=== PATIENT | male | born 1960 | race Caucasian/White ===

== ENCOUNTER 2019-11-08 07:28 | Day surgery (SDC) | payer BC ==
--- NOTE | 2019-11-06 14:59 | HP ---
DATE OF SURGERY: 11/08/2019 ANTICIPATED PROCEDURE: Short C-scope. HISTORY OF PRESENT ILLNESS: A 59 year-old had high grade dysplasia, atypical polyp cancer. He presents for colonoscopy with two Fleet's enemas. Very large atypical polyp resected on 08/30/2019 requiring immediate follow up. PAST MEDICAL HISTORY: ALLERGIES: PENICILLIN. MEDICATIONS: Lisinopril, atorvastatin, baby aspirin. PAST SURGICAL HISTORY: None. SOCIAL HISTORY: Negative. FAMILY HISTORY: Negative. REVIEW OF SYSTEMS: Hypertension, diabetes. PHYSICAL EXAMINATION: VITAL SIGNS: Normal. CHEST: Clear. COR: Regular. ABDOMEN: Satisfactory. PLAN: Limited colonoscopy.
[~2019-11-08 07:28] MED LIST: Lactated Ringers 1,000 ML IV ONE; Lactated Ringers 1,000 ML IV SCH
[2019-11-08] MEDS ORDERED: DIPRIVAN 200 MG/20 ML IV ONE ×2 (08:05→08:43)
[2019-11-08] MEDS ORDERED: Ketamine HCl 50 MG/ML ONE (08:05)
[2019-11-08 10:04] VITALS: BP 141/59; PULSE 90; O2SAT 95
--- NOTE | 2019-11-08 13:28 | OP ---
SURGERY DATE/TIME: 11/08/2019 0838 PREOPERATIVE DIAGNOSIS: Previous large sessile rectal polyp requiring re-evaluation. POSTOPERATIVE DIAGNOSES: 1) The patient did have complete exam to the cecum after two enema prep actually did an excellent job. 2) Proximal sigmoid 8 mm hot polypectomy. 3) Rectal 4 cm piecemeal hot snare removal. PROCEDURE: Colonoscopy complete to cecum. SURGEON: Miguel Del Castillo M.D. ANESTHESIA: MAC. COMPLICATIONS: None. CONDITION: Stable. ANTICIPATED FOLLOW UP: Six to eight weeks repeat exam unless this is malignant then other considerations will be given. DESCRIPTION OF PROCEDURE: Patient taken to endoscopy. Left lateral decubitus position. Patient had two enemas. Prep was excellent and this was taken advantage of. The scope was immediately advanced to the cecum. Base of cecum, ileocecal valve satisfactory. Circumferential withdrawal ascending, hepatic, transverse, splenic, descending. Proximal sigmoid 8 mm polyp taken with hot biopsy forceps. The rest of the sigmoid, upper rectum, the lower rectum right below the prostate anteriorly 4 cm sessile base angry-looking polyp was taken. Several biopsies were taken and then several hot snares were performed and all of this material was collected in a canister and sent as "Rectal". It certainly is still concerning. Miguel discussion with the . The patient tolerated the procedure satisfactorily.
== END 2019-11-08 10:15 | disposition home or self-care (01) ==
LOC: SDC 07:28
PROVIDERS: ATTEND Surgery
DX: Z09 Encounter for follow-up examination after completed treatment for conditions other than malignant neoplasm (principal); Z87.19 Personal history of other diseases of the digestive system; D37.5 Neoplasm of uncertain behavior of rectum; K63.5 Polyp of colon
CPT/HCPCS: 88305; J2704

== ENCOUNTER 2019-12-13 09:25 | Day surgery (SDC) | payer BC ==
--- NOTE | 2019-12-11 13:14 | HP ---
DATE OF SURGERY: 12/13/2019 ADMISSION DIAGNOSIS: Atypical rectal polyp. ANTICIPATED PROCEDURE: Transrectal excision large polyp. HISTORY OF PRESENT ILLNESS: The patient has a large atypical polyp. It is still unclear the exact nature and extent. He presents for excision if possible. He is aware that this will probably not be a totally definitive procedure. PAST MEDICAL HISTORY: ALLERGIES: PENICILLIN. MEDICATIONS: Lisinopril, atorvastatin, baby aspirin. PAST SURGICAL HISTORY: Previous colonoscopy. SOCIAL HISTORY: Negative. FAMILY HISTORY: Negative. REVIEW OF SYSTEMS: Hypertension, cholesterol. PHYSICAL EXAMINATION: VITAL SIGNS: Normal. CHEST: Clear. COR: Regular. IMPRESSION: Large rectal polyp. PLAN: Transrectal excision of large polyp.
[~2019-12-13 09:25] MED LIST changes: -Lactated Ringers 1,000 ML IV ONE
[2019-12-13] MEDS ORDERED: EXPAREL 266 MG/20 ML VIAL IJ ONE (09:26)
[2019-12-13] MEDS ORDERED: SUBLIMAZE 100 MCG/2 ML ONE (10:49)
[2019-12-13] MEDS ORDERED: DIPRIVAN 200 MG/20 ML IV ONE (10:49)
[2019-12-13] MEDS ORDERED: Decadron 4 MG INJ ONE (11:48)
[2019-12-13] MEDS ORDERED: Zofran 4 MG/2 ML VIAL ONE (11:48)
[2019-12-13] MEDS ORDERED: Zemuron 100 MG/10 ML ONE ×2 (12:04→12:25)
[2019-12-13] MEDS ORDERED: Lactated Ringers 1,000 ML IV ONE (12:14)
[2019-12-13] MEDS ORDERED: TORAdol 30 mg Injection ONE (12:33)
[2019-12-13] MEDS ORDERED: BRIDION 200MG/2ML IV ONE (12:33)
[2019-12-13 14:14] VITALS: O2SAT 92
[2019-12-13 14:43] VITALS: BP 129/74; PULSE 61
--- NOTE | 2019-12-13 15:20 | OP ---
SURGERY DATE/TIME: 12/13/2019 1139 PREOPERATIVE DIAGNOSIS: Large rectal polyp so far benign but concerning. POSTOPERATIVE DIAGNOSIS: Large rectal polyp so far benign but concerning. PROCEDURE: Fulguration of the base of a 2.5 cm rectal polyp located at 3:00 between 2 cm and 4.5 cm along the left lateral side wall of the rectum. SURGEON: Miguel Del Castillo M.D. ANESTHESIA: General. Exparel anesthetic postoperatively. COMPLICATIONS: None. CONDITION: Stable. INDICATION: The patient has a large polyp initially piecemeal removed endoscopically. He now presents. He was going to get an MRI but could not stand it because of claustrophobia. He presents for re-excision. Initial resection was benign but atypical. DESCRIPTION OF PROCEDURE: Anal retractor placed. It could not be pulled down at all. It was located between 2 cm and 4.5 cm on the left lateral wall. It was not going to be able to be surgically elliptically resected. The endoscope was placed. With the roller ball handheld cautery after taking the surface with a hot snare, the base was all rolled with the hot metal crane operator ball cautery. All the chips were saved and collected in a container and submitted as "Rectal Polyp:". He will return to the office in a week for his pathology.
== END 2019-12-13 14:50 | disposition home or self-care (01) ==
LOC: SDC 09:25
PROVIDERS: ATTEND Surgery
DX: D12.8 Benign neoplasm of rectum (principal); I10 Essential (primary) hypertension; E78.00 Pure hypercholesterolemia, unspecified
CPT/HCPCS: 88305; J1100; J1885; J2405; J2704; J3010

== ENCOUNTER 2020-03-27 07:49 | Day surgery (SDC) | payer BC ==
--- NOTE | 2020-03-24 10:42 | HP ---
DATE OF SURGERY: 03/27/2020 ANTICIPATED PROCEDURE: Excision of transrectal polyp. HISTORY OF PRESENT ILLNESS: The patient has transrectal polyp enlarged and presents for excision. PAST MEDICAL HISTORY: ALLERGIES: PENICILLIN. MEDICATIONS: Lisinopril, atorvastatin, baby aspirin. SOCIAL HISTORY: Negative. FAMILY HISTORY: Negative. REVIEW OF SYSTEMS: Hypertension. PHYSICAL EXAMINATION: VITAL SIGNS: Normal. CHEST: Clear. COR: Regular. PLAN: Transrectal excision of polyps.
[2020-03-27] MEDS ORDERED: EXPAREL 266 MG/20 ML VIAL IJ ONE (07:50)
[2020-03-27] MEDS ORDERED: Lactated Ringers 1,000 ML IV SCH (08:00)
[2020-03-27] MEDS ORDERED: Versed 2 MG/2 ML Injection ONE (10:05)
[2020-03-27] MEDS ORDERED: DIPRIVAN 200 MG/20 ML IV ONE (10:05)
[2020-03-27] MEDS ORDERED: SUBLIMAZE 100 MCG/2 ML ONE ×2 (10:05→10:09)
[2020-03-27] MEDS ORDERED: Ephedrine Sulfate 50 MG/ML ONE (10:20)
[2020-03-27] MEDS ORDERED: CLINDAMYCIN-D5W 900 MG/50 ML*** 900 MG/50 ML BAG IV ONE (11:01)
[2020-03-27] MEDS ORDERED: Lactated Ringers 0 ML IV ONE (11:16)
[2020-03-27 12:29] VITALS: BP 119/86; PULSE 55
[2020-03-27 12:34] VITALS: O2SAT 94
--- NOTE | 2020-03-28 09:39 | OP ---
SURGERY DATE/TIME: 03/27/2020 1003 PREOPERATIVE DIAGNOSIS: Rectal polyp sessile about 4 cm. POSTOPERATIVE DIAGNOSIS: Rectal polyp sessile about 4 cm. PROCEDURE: Piecemeal transanal resection with suture and piecemeal colonoscopic fulguration of residual edges of polyp. SURGEON: Miguel Del Castillo M.D. ANESTHESIA: General. ESTIMATED BLOOD LOSS: Less than 100. DRAINS: None. INDICATION: The patient has rectal polyp. Initial biopsies were benign. He presents for additional removal at this time. DESCRIPTION OF PROCEDURE: He is taken to surgery, placed in lithotomy Trendelenburg position. He is a robust gentleman. On palpation the lesion is from 7:00 to 4:00 posterior wall. Starts 8 mm above the anal verge, proceeds 3.5 to 4 cm. Fairly circular in nature. It was taken in two pieces transrectally and then the residual polyp was taken with sutures #2-0 chromic. The residual polyp was taken from the anal mucosa up the rectum. At this time it looked like all polypoid material had either been removed or fulgurated. We anticipate re-examination in three months if the path is benign. If the path is malignant additional options will be defined.
== END 2020-03-27 12:25 | disposition home or self-care (01) ==
LOC: SDC 07:49
PROVIDERS: ATTEND Surgery
DX: C20 Malignant neoplasm of rectum (principal); I10 Essential (primary) hypertension; Z79.899 Other long term (current) drug therapy
CPT/HCPCS: 88305; J2250; J2704; J3010

== ENCOUNTER 2020-05-15 09:07 | Day surgery (SDC) | payer BC ==
--- NOTE | 2020-05-15 08:09 | HP ---
DATE OF SURGERY: 05/15/2020 ADMISSION DIAGNOSIS: The patient has rectal cancer requiring access for chemotherapy and presents for port. ANTICIPATED PROCEDURE: Port placement. HISTORY OF PRESENT ILLNESS: The patient has biopsy proven rectal cancer and presents for chemotherapy. PAST MEDICAL HISTORY: ALLERGIES: PENICILLIN. MEDICATIONS: Lisinopril. Atorvastatin. Aspirin. PAST SURGICAL HISTORY: Excision of transrectal polyp. SOCIAL HISTORY: Negative. FAMILY HISTORY: Negative. REVIEW OF SYSTEMS: Hypertension. Elevated cholesterol. PHYSICAL EXAMINATION: VITAL SIGNS: Normal. CHEST: Clear. COR: Regular. ABDOMEN: Satisfactory. IMPRESSION/PLAN: Port placement.
[~2020-05-15 09:07] MED LIST changes: +DILAUDID 2 MG INJECTION ONE; +DIPRIVAN 200 MG/20 ML IV ONE; +Lactated Ringers 1,000 ML IV ONE; -Lactated Ringers 1,000 ML IV SCH; +XYLOCAINE 1% HCL 20 ML MDV ONE
[2020-05-15] MEDS ORDERED: Lactated Ringers 1,000 ML IV SCH (10:00)
--- NOTE | 2020-05-15 12:14 | OP ---
SURGERY DATE/TIME: 05/15/2020 1128 PREOPERATIVE DIAGNOSIS: Inadequate access for chemotherapy. POSTOPERATIVE DIAGNOSIS: Inadequate access for chemotherapy. PROCEDURE: Tunnel port with fluoroscopic C-arm guidance. SURGEON: Miguel Del Castillo M.D. ANESTHESIA: JOVAN Ellis CRNA COMPLICATIONS: None. CONDITION: Stable. ESTIMATED BLOOD LOSS: None. INDICATION: A patient requiring access. DESCRIPTION OF PROCEDURE: Routine prep and drape. Venipuncture obtained. Guidewire passed first puncture. Pocket fashioned with 1% lidocaine, electrocautery. Catheter tunneled and secured at 23 cm. Good aspiration of low pressure venous blood right atrium. No pneumothorax. In good position. Closed with 3-0 Prolene, 3-0 Vicryl, 4-0 Vicryl and Steri-Strips. The patient tolerated the procedure satisfactorily. Port is ready to be used. Final time out.
[2020-05-15] MEDS ORDERED: Cleocin Phosphate IV 600 MG/4 ML ONE (12:24)
--- NOTE | 2020-05-15 12:46 | XRAY ---
Indication: Port placement. Intraoperative fluoroscopy was provided for 2 seconds. 2 digital spot images submitted for interpretation demonstrates right Port-A-Cath with the tip projecting over the SVC. Correlate with intraoperative findings/report.
[2020-05-15 14:08] VITALS: O2SAT 92
[2020-05-15 14:15] VITALS: BP 114/57; PULSE 59
== END 2020-05-15 14:00 | disposition home or self-care (01) ==
LOC: SDC 09:07
PROVIDERS: ATTEND Surgery
DX: C20 Malignant neoplasm of rectum (principal)
CPT/HCPCS: 36571; 77001; C1788; J1170; J1642; J2704

== ENCOUNTER 2020-07-17 09:18 | Day surgery (SDC) | payer BC ==
--- NOTE | 2020-07-16 07:50 | HP ---
DATE OF SURGERY: 07/17/2020 HISTORY OF PRESENT ILLNESS: The patient has a rectal cancer. He has been seeing Dr. Jurado for chemotherapy infusion. We have fulgurated this area multiple times. He presents for colonoscopy. We have not done a full colonoscopy on the patient. His oncologist wishes to have a complete evaluation of his colon. PAST MEDICAL HISTORY: Hypertension, hyperlipidemia. PAST SURGICAL HISTORY: Excision of a transrectal polyp. ALLERGIES: PENICILLIN. MEDICATIONS: Lisinopril, atorvastatin, aspirin, multivitamin. FAMILY HISTORY: Diabetes. SOCIAL HISTORY: Negative. REVIEW OF SYSTEMS: CONSTITUTIONAL: Denies fever or chills. CHEST: Denies shortness of breath. CVS: Denies chest pain. ABDOMEN: Denies abdominal pain, nausea, vomiting, diarrhea, constipation or rectal bleeding. PHYSICAL EXAMINATION: GENERAL: No acute distress. CHEST: Nonlabored. No shortness of breath. CVS: Regular rate and rhythm. ABDOMEN: Soft, nontender to palpation. EXTREMITIES: No edema. NEUROLOGIC: Alert. PSYCHIATRIC: Appropriate. IMPRESSION: The patient has a rectal cancer and has not had a complete colonoscopy. PLAN: Colonoscopy with Dr. Miguel Del Castillo. As dictated by Ariella Meraz NP.
[~2020-07-17 09:18] MED LIST changes: -DILAUDID 2 MG INJECTION ONE; +Ketamine HCl 50 MG/ML ONE; +Lactated Ringers 1,000 ML IV SCH; -XYLOCAINE 1% HCL 20 ML MDV ONE
[2020-07-17] MEDS ORDERED: Lactated Ringers 1,000 ML IV ONE (10:27)
[2020-07-17 13:26] VITALS: O2SAT 96
[2020-07-17 13:31] VITALS: BP 138/84; PULSE 67
--- NOTE | 2020-07-18 07:44 | OP ---
SURGERY DATE/TIME: 07/17/2020 1200 PREOPERATIVE DIAGNOSIS: Follow up rectal cancer. POSTOPERATIVE DIAGNOSIS: Markedly improved anal-rectal tumor site. No additional lesions noted. PROCEDURE: Colonoscopy complete to cecum. SURGEON: Miguel Del Castillo M.D. ANESTHESIA: MAC. PREP SCORE: Okay, not exceptional or good. COMPLICATIONS: None. CONDITION: Stable. INDICATION: The patient is requiring a full colonoscopy. DESCRIPTION OF PROCEDURE: He is taken to endoscopy. Left lateral decubitus position. MAC sedation provided. Scope introduced. Scope advanced to the cecum. Ileocecal valve was normal. Base of the cecum normal. There was a light coat of stool throughout making this an okay but not exceptional or good prep. Returning to the rectum and the anus posteriorly on digital examination there had been some induration and there was slight ulceration, slight irritation. The two worst areas were biopsied. Two in home sales representative samples submitted of anal-rectal area. It certainly has the appearance of very markedly improved. There was still some slight irritation, slight ulceration. Biopsies are pending.
== END 2020-07-17 14:30 | disposition home or self-care (01) ==
LOC: SDC 09:18
PROVIDERS: ATTEND Surgery
DX: Z08 Encounter for follow-up examination after completed treatment for malignant neoplasm (principal); Z85.048 Personal history of other malignant neoplasm of rectum, rectosigmoid junction, and anus; I10 Essential (primary) hypertension; E78.5 Hyperlipidemia, unspecified; Z79.899 Other long term (current) drug therapy
CPT/HCPCS: J2704

== ENCOUNTER 2021-02-05 09:40 | Day surgery (SDC) | payer BC ==
--- NOTE | 2021-01-29 08:38 | HP ---
DATE OF SURGERY: 02/05/2021 HISTORY OF PRESENT ILLNESS: The patient presented to the office for evaluation of rectal cancer. The patient has had fulguration of a rectal polyp numerous times to date. He has been getting some chemotherapy per his oncologist. We have not resected this mass. The last limited scope was not showing any malignancy on biopsy. He presented today for limited colonoscopy. PAST MEDICAL HISTORY: Rectal cancer. Myocardial infarction. Hypertension. Hyperlipidemia. Coronary artery disease. PAST SURGICAL HISTORY: None. ALLERGIES: PENICILLIN. MEDICATIONS: Aspirin, lisinopril, Atorvastatin, multivitamin. FAMILY HISTORY: Diabetes. SOCIAL HISTORY: Negative. REVIEW OF SYSTEMS: CONSTITUTIONAL: Denies fever or chills. CHEST: Denies shortness of breath. CVS: Denies chest pain. ABDOMEN: Denies abdominal pain, nausea, vomiting, diarrhea, constipation or rectal bleeding. INTEGUMENTARY: Negative. PHYSICAL EXAMINATION: GENERAL: No acute distress. CHEST: Nonlabored. No shortness of breath. CVS: Regular rate and rhythm. ABDOMEN: Soft, nontender to palpation. EXTREMITIES: No edema. NEUROLOGIC: Alert. PSYCHIATRIC: Appropriate. IMPRESSION: History of rectal cancer. PLAN: Limited colonoscopy with Dr. Miguel Del Castillo. As dictated by Ariella Meraz NP.
[2021-02-05] MEDS ORDERED: Lactated Ringers 1,000 ML IV SCH (11:00)
[2021-02-05] MEDS ORDERED: DIPRIVAN 200 MG/20 ML IV ONE ×2 (13:00→13:11)
[2021-02-05 14:18] VITALS: BP 129/65; PULSE 57; O2SAT 97
--- NOTE | 2021-02-05 14:27 | OP ---
SURGERY DATE/TIME: 02/05/2021 1302 PREOPERATIVE DIAGNOSIS: Follow up of chemo and radiation treatment. POSTOPERATIVE DIAGNOSIS: This area is totally normal to visual examination and to palpation by finger. Additional diagnosis is anal/rectal polyp-tag that was taken with hot biopsy forceps. PROCEDURE: Colonoscopy complete to cecum. SURGEON: Miguel Del Castillo M.D. ANESTHESIA: MAC/General. COMPLICATIONS: None. CONDITION: Stable. INDICATION: The patient completed his chemotherapy and radiation therapy for rectal cancer and presents for post-treatment evaluation. DESCRIPTION OF PROCEDURE: Taken to endoscopy. Left lateral decubitus position. MAC/General was provided. Anal digital examination there was nothing palpable. No firmness or induration at all. There was slight anal stenosis just to the size of the finger. He will probably have one to two spots of blood from this anal digital examination today. Scope introduced. It was ran up to 50. Two Fleet's enemas had been performed. The radiation changes started about 14 cm and came down to the anal skin. There was an anal/rectal tag polyp that was taken with hot biopsy forceps and submitted. In the tumor field, there was absolutely nothing visible, nothing palpable. Complete remission clinically is present at this time in this area.
== END 2021-02-05 14:30 | disposition home or self-care (01) ==
LOC: SDC 09:40
PROVIDERS: ATTEND Surgery
DX: Z08 Encounter for follow-up examination after completed treatment for malignant neoplasm (principal); K62.1 Rectal polyp; Z85.048 Personal history of other malignant neoplasm of rectum, rectosigmoid junction, and anus; E78.5 Hyperlipidemia, unspecified; Z79.899 Other long term (current) drug therapy
CPT/HCPCS: J2704

== ENCOUNTER 2021-06-25 07:05 | Day surgery (SDC) | payer BC ==
--- NOTE | 2021-06-19 14:50 | HP ---
DATE OF SURGERY: 06/25/2021 HISTORY OF PRESENT ILLNESS: The patient presents with a follow up for rectal cancer. It looks like this is a three month follow up and we had scoped him back in February. He did have an anal biopsy with polypoid squamous mucosa with active and chronic inflammation, no dysplasia or cancer. At that time we did a complete colonoscopy to cecum. The patient has had chemotherapy and radiation for a rectal cancer in the past. I do not believe this patient has had any colon resection to date. The polyp issue in the past has been excised locally. PAST MEDICAL HISTORY: Hypertension, hyperlipidemia, benign prostatic hypertrophy. PAST SURGICAL HISTORY: The patient reported a heart stent in 2003. ALLERGIES: PENICILLIN. MEDICATIONS: Lisinopril, aspirin, multivitamin, atorvastatin, Tamsulosin. FAMILY HISTORY: Heart disease, cancer, diabetes. SOCIAL HISTORY: Negative. REVIEW OF SYSTEMS: CONSTITUTIONAL: Denies fever or chills. CHEST: Denies shortness of breath. CVS: Denies chest pain. ABDOMEN: Denies abdominal pain, nausea, vomiting, diarrhea, constipation or rectal bleeding. INTEGUMENTARY: Negative. PHYSICAL EXAMINATION: GENERAL: No acute distress. CHEST: Nonlabored. No shortness of breath. CVS: Regular rate and rhythm. ABDOMEN: Soft. EXTREMITIES: No edema. NEUROLOGIC: Alert. PSYCHIATRIC: Appropriate. IMPRESSION: History of rectal cancer. PLAN: Limited colonoscopy with Dr. Miguel Del Castillo. As dictated by Ariella Meraz NP.
[~2021-06-25 07:05] MED LIST changes: -DIPRIVAN 200 MG/20 ML IV ONE; -Ketamine HCl 50 MG/ML ONE; -Lactated Ringers 1,000 ML IV ONE
[2021-06-25] MEDS ORDERED: DIPRIVAN 200 MG/20 ML IV ONE ×2 (10:48→10:57)
[2021-06-25 11:53] VITALS: O2SAT 96
[2021-06-25 11:56] VITALS: BP 107/61; PULSE 64
--- NOTE | 2021-06-25 14:30 | OP ---
SURGERY DATE/TIME: 06/25/2021 1049 PREOPERATIVE DIAGNOSIS: Status post rectal cancer treated with full radiation and chemotherapy. POSTOPERATIVE DIAGNOSIS: Postoperative radiation changes otherwise normal of the rectum. PROCEDURE: Limited scope, 50 cm. SURGEON: Miguel Del Castillo M.D. ANESTHESIA: MAC. COMPLICATIONS: None. CONDITION: Stable. INDICATION: The patient presents for six month follow up status post radiation and chemotherapy of the rectum. DESCRIPTION OF PROCEDURE: He is taken to endoscopy suite. MAC sedation provided. A very aggressive digital examination of the area yielded no suggestion of any firmness, induration or tumor at all. It is a little fragile because of the radiation. There are some radiation changes. The scope is introduced. The scope is initially advanced up about 45 to 50 cm and then the transverse colon was visible and it was basically traversed a few seconds and the cecal valve was actually seen. There was stool over here on this side this was not a totally prepped colon and there was no effort at totally examining the colon. The scope was withdrawn back to the mid colon fairly rapidly, in the sigmoid fairly rapidly. At this time it was circumferentially inspected. Starting in the distal sigmoid radiation changes they became more pronounced. There was even a little mucosal fluffing down by the anus itself and externally but there was no lesion at all. There was nothing to biopsy. No biopsies were taken. PLAN: Follow up in six months.
== END 2021-06-25 12:04 | disposition home or self-care (01) ==
LOC: SDC 07:05
PROVIDERS: ATTEND Surgery
DX: Z08 Encounter for follow-up examination after completed treatment for malignant neoplasm (principal); Z85.048 Personal history of other malignant neoplasm of rectum, rectosigmoid junction, and anus; Z86.010 Personal history of colon polyps; Z79.899 Other long term (current) drug therapy
CPT/HCPCS: J2704

== ENCOUNTER 2021-08-06 07:49 | Day surgery (SDC) | payer BC ==
[~2021-08-06 07:49] MED LIST changes: -Lactated Ringers 1,000 ML IV SCH; +XYLOCAINE 1% HCL 20 ML MDV ONE
[2021-08-06] MEDS ORDERED: DEMEROL 50 MG IJ ONE (07:50)
[2021-08-06] MEDS ORDERED: VERSED 5 MG/5 ML IV ONE (07:50)
[2021-08-06] MEDS ORDERED: Lactated Ringers 1,000 ML IV SCH (08:30)
[2021-08-06] MEDS ORDERED: Lactated Ringers 1,000 ML IV ONE (08:30)
[2021-08-06 11:46] VITALS: O2SAT 95
[2021-08-06 11:47] VITALS: BP 138/62; PULSE 59
--- NOTE | 2021-08-06 15:32 | OP ---
SURGERY DATE: 08/06/2021 SURGERY TIME: 1035 PREOPERATIVE DIAGNOSIS: 1. UNDESIRED PORT-A-CATH. POSTOPERATIVE DIAGNOSIS: 1. UNDESIRED PORT-A-CATH. PROCEDURE: 1. Port removal. SURGEON: Miguel Del Castillo M.D. PIPED BUTTONHOLE MACHINE OPERATOR: [facility] resident. ANESTHESIA: Local IV sedation. COMPLICATIONS: None. CONDITION: Stable. INDICATION: Patient requiring port removal. OPERATIVE PROCEDURE: Taken to surgery. Routine prep and drape. IV sedation titrated. Oximeter was kept over 90% and was monitored. 1% Lidocaine. The catheter and the port were removed in toto. Hemostasis satisfactory. Closed with 3-0 Vicryl, 4-0 Vicryl, steri-strips. The patient tolerated the procedure satisfactory.
== END 2021-08-06 11:56 | disposition home or self-care (01) ==
LOC: SDC 07:49
PROVIDERS: ATTEND Surgery
DX: Z45.2 Encounter for adjustment and management of vascular access device (principal)
CPT/HCPCS: J2175; J2250

== ENCOUNTER 2022-03-04 07:58 | Day surgery (SDC) | payer BC ==
--- NOTE | 2022-02-25 10:38 | HP ---
DATE OF SURGERY: 03/04/2022 HISTORY OF PRESENT ILLNESS: The patient is here for follow up of rectal cancer. The patient had chemo and radiation to the area. The patient had a scope in June 2021. It showed some postoperative radiation changes but an otherwise normal rectum. It only went to 50 cm. The patient was put on a six month follow up after that. The patient has had his port removed. The patient actually on last scope did get to have the scope fully inserted to the cecum and the valve was visualized. The colon prep was not that good. There were no biopsies taken at that time. PAST MEDICAL HISTORY: Hypertension, hyperlipidemia, benign prostatic hypertrophy. PAST SURGICAL HISTORY: None recent. ALLERGIES: PENICILLIN. MEDICATIONS: Lisinopril, atorvastatin, Zetia, Flomax, aspirin, multivitamin. FAMILY HISTORY: Diabetes. SOCIAL HISTORY: None. REVIEW OF SYSTEMS: CONSTITUTIONAL: Denies fever or chills. CHEST: Denies shortness of breath. CVS: Denies chest pain. ABDOMEN: Denies abdominal pain, nausea, vomiting, diarrhea, constipation or rectal bleeding. PHYSICAL EXAMINATION: GENERAL: No acute distress. CHEST: Nonlabored. No shortness of breath. CVS: Regular rate and rhythm. ABDOMEN: Soft, nontender. IMPRESSION: Follow up of rectal cancer. PLAN: Colonoscopy with Dr. Miguel Del Castillo. As dictated by Ariella Meraz NP.
[~2022-03-04 07:58] MED LIST changes: +Lactated Ringers 1,000 ML IV SCH; -XYLOCAINE 1% HCL 20 ML MDV ONE
[2022-03-04] MEDS ORDERED: Lactated Ringers 1,000 ML IV ONE (08:10)
[2022-03-04] MEDS ORDERED: DIPRIVAN 200 MG/20 ML IV ONE (10:42)
[2022-03-04] MEDS ORDERED: Versed 2 MG/2 ML Injection ONE (10:43)
[2022-03-04 13:17] VITALS: BP 126/79; PULSE 63; O2SAT 95
--- NOTE | 2022-03-04 13:35 | OP ---
SURGERY DATE/TIME: 03/04/2022 1110 PREOPERATIVE DIAGNOSIS: Follow up rectal cancer. POSTOPERATIVE DIAGNOSIS: An 8 mm mid transverse polyp. PROCEDURES: 1) Colonoscopy complete to cecum. 2) Hot polypectomy 8 mm mid transverse. SURGEON: Miguel Del Castillo M.D. ANESTHESIA: MAC. COMPLICATIONS: None. CONDITION: Stable. FOLLOW UP: Three years. Rectum was normal. INDICATION: The patient had rectal cancer, presents for follow up. DESCRIPTION OF PROCEDURE: Taken to endoscopy. Left lateral decubitus position. Anal digital examination satisfactory. Scope introduced. Anus and rectum is normal. Rectosigmoid junction normal. Sigmoid navigated. Descending navigated across over to the base of the cecum. Base of the cecum, ileocecal valve, appendiceal orifice normal. Ascending, hepatic, transverse, splenic, descending, sigmoid normal. Rectum was closely inspected and was normal. Anus normal. The patient tolerated the procedure satisfactory. An 8 mm polyp was taken in the mid transverse colon with hot biopsy forceps.
== END 2022-03-04 11:55 | disposition home or self-care (01) ==
LOC: SDC 07:58
PROVIDERS: ATTEND Surgery
DX: Z08 Encounter for follow-up examination after completed treatment for malignant neoplasm (principal); Z85.048 Personal history of other malignant neoplasm of rectum, rectosigmoid junction, and anus; K63.5 Polyp of colon
CPT/HCPCS: J2250; J2704

== ENCOUNTER 2023-02-17 07:37 | Day surgery (SDC) | payer BC ==
--- NOTE | 2023-01-05 11:38 | HP ---
DATE OF SURGERY: 01/06/2023 HISTORY OF PRESENT ILLNESS: The patient is a 62-year-old male presents with follow up of colon cancer. He has completed treatment. He is about one year out. He has no other symptom complaints of the GI tract at this time. PAST MEDICAL HISTORY: Hypertension, hyperlipidemia, benign prostatic hypertrophy, colon cancer. PAST SURGICAL HISTORY: Port-A-Cath. Cataracts. Presumed colon surgery unsure of what he had done. ALLERGIES: PENICILLIN. MEDICATIONS: Multivitamins, aspirin, tamsulosin, Zetia, atorvastatin, lisinopril. FAMILY HISTORY: Diabetes. SOCIAL HISTORY: None. REVIEW OF SYSTEMS: CONSTITUTIONAL: Denies fever or chills. CHEST: Denies shortness of breath. CVS: Denies chest pain. ABDOMEN: Denies abdominal pain. PHYSICAL EXAMINATION: GENERAL: No acute distress. CHEST: Nonlabored. No shortness of breath. CVS: Regular rate and rhythm. ABDOMEN: Soft. IMPRESSION: Follow up of colon cancer. PLAN: Colonoscopy with Dr. Miguel Del Castillo. As dictated by Ariella Meraz NP.
--- NOTE | 2023-02-15 12:01 | HP ---
DATE OF SURGERY: 02/17/2023 HISTORY OF PRESENT ILLNESS: The patient is a 62-year-old male presents for colonoscopy. The patient for one year follow up of colon cancer. He has completed treatment. He has no other complaints at this time. PAST MEDICAL HISTORY: Hypertension, hyperlipidemia, benign prostatic hypertrophy, colon cancer. PAST SURGICAL HISTORY: Port-A-Cath. I do not know if the patient has had colon resection. ALLERGIES: PENICILLIN. MEDICATIONS: Multivitamins, aspirin, tamsulosin, Zetia, atorvastatin, lisinopril. FAMILY HISTORY: None. SOCIAL HISTORY: None. REVIEW OF SYSTEMS: CONSTITUTIONAL: Denies fever or chills. CHEST: Denies shortness of breath. CVS: Denies chest pain. ABDOMEN: Denies abdominal pain. PHYSICAL EXAMINATION: GENERAL: No acute distress. CHEST: Nonlabored. No shortness of breath. CVS: Regular rate and rhythm. ABDOMEN: Soft. IMPRESSION: One year follow up of colon cancer. PLAN: Colonoscopy with Dr. Miguel Del Castillo. As dictated by Ariella Meraz NP.
[2023-02-17] MEDS ORDERED: Lactated Ringers 1,000 ML IV ONE (08:12)
[2023-02-17] MEDS ORDERED: Lactated Ringers 1,000 ML IV SCH (08:30)
[2023-02-17] MEDS ORDERED: Versed 2 MG/2 ML Injection ONE (09:18)
[2023-02-17] MEDS ORDERED: DIPRIVAN 200 MG/20 ML IV ONE ×2 (09:18→10:56)
[2023-02-17] MEDS ORDERED: SUBLIMAZE 100 MCG/2 ML ONE (10:57)
[2023-02-17 11:43] VITALS: BP 137/84; PULSE 65; O2SAT 96
--- NOTE | 2023-02-17 13:05 | OP ---
SURGERY DATE/TIME: 02/17/2023 1050 PREOPERATIVE DIAGNOSIS: Follow up of colon cancer. POSTOPERATIVE DIAGNOSIS: Normal examination to the cecum. PROCEDURE: Colonoscopy. SURGEON: Miguel Del Castillo M.D. ANESTHESIA: MAC. COMPLICATIONS: None. CONDITION: Stable. INDICATION: The patient presents for yearly examination from colon cancer. DESCRIPTION OF PROCEDURE: Anal digital examination satisfactory. Scope introduced. The scope advanced to the cecum. Base of the cecum, ileocecal valve, appendiceal orifice normal. Ascending, hepatic, transverse, splenic, descending, sigmoid, rectum, anus. Rectum anus particularly blown up and inspected well and was all normal. Findings discussed with the in the waiting room. PLAN: Follow up in one year.
== END 2023-02-17 11:45 | disposition home or self-care (01) ==
LOC: SDC 07:37
PROVIDERS: ATTEND Surgery
DX: Z08 Encounter for follow-up examination after completed treatment for malignant neoplasm (principal); Z85.038 Personal history of other malignant neoplasm of large intestine
CPT/HCPCS: J2250; J2704; J3010

== ENCOUNTER 2023-08-18 20:35 | Emergency (ER) | payer MEDICARE, OTHER ==
[2023-08-18 20:50] VITALS: RESP 18; TEMP 98
--- NOTE | 2023-08-18 20:51 | ERPHSYRPT ---
- History of Present Illness Time Seen by Provider: 08/18/23 20:42 Source: patient Exam Limitations: no limitations Physician History: Pt states about 2 hours ago he was throwing a 15 # bowling ball and felt a discomfort in his right biceps with bruising; denies tingling/numbness of his right hand. Allergies/Adverse Reactions: Penicillins Allergy (Severe, Verified 08/18/23 20:43) Hives Home Medications: Atorvastatin Calcium [Lipitor] 80 mg PO DAILY 08/23/19 [History] Multivitamin [Multivitamins] 1 each PO DAILY 08/23/19 [History] lisinopriL [Lisinopril] 40 mg PO DAILY 08/23/19 [History] Tamsulosin HCl 0.4 mg [Flomax 0.4 MG] 0.4 mg PO DAILY 05/14/20 [History] Ezetimibe 10 mg [Zetia 10 MG] 10 mg PO DAILY 06/18/21 [History] Amlodipine Besylate 5 mg PO DAILY 08/18/23 [History] - Review of Systems Musculoskeletal: Injury (right biceps) - Past Medical History Pertinent Past Medical History: Yes Neurological History: No Pertinent History ENT History: Cataracts Cardiac History: Coronary Artery Disease, High Cholesterol, Hypertension, Myocardial Infarction (MA) Respiratory History: No Pertinent History Endocrine Medical History: No Pertinent History Musculoskeletal History: No Pertinent History GI Medical History: Colorectal Cancer, Polyps History: No Pertinent History Psycho-Social History: No Pertinent History Male Reproductive Disorders: Prostate Problems Other Medical History: has had 2 rounds of chemo and and one round of radiation. heart attack 2004, colon cancer Dx 2018 - Past Surgical History Past Surgical History: Yes Neuro Surgical History: No Pertinent History Cardiac: Cardiac Catheterization, Vascular Surgery Respiratory: No Pertinent History Gastrointestinal: No Pertinent History Genitourinary: No Pertinent History Musculoskeletal: No Pertinent History Male Surgical History: No Pertinent History Other Surgical History: colonoscopy, skull fx as child with sutures in head. attempt to remove sigmoid polyp. cvl port has been removed - Social History Smoking Status: Never smoker Exposure to second hand smoke: No Drug Use: none Significant Family History: no pertinent family hx - Nursing Vital Signs Nursing Vital Signs: Initial Vital Signs Temperature 98 F 08/18/23 20:43 Pulse Rate 61 08/18/23 20:43 Respiratory Rate 18 08/18/23 20:43 Blood Pressure 134/73 08/18/23 20:43 O2 Sat by Pulse Oximetry 94 L 08/18/23 20:43 Pain Scale Pain Intensity 0 - Physical Exam General Appearance: alert Shoulder Exam: normal ROM Elbow/Forearm Exam: normal ROM Wrist Exam: normal ROM Hand Exam: normal ROM Neuro/Tendon Exam: normal sensation, normal motor functions Mental Status Exam: alert Skin Exam: ecchymosis (mid anterior aspect of right biceps has mild ecchymosis and mild edema) - Radiology Exams Right Humerus X-ray Interpretation: Discussed w/ radiologist, No Fracture Ordered Tests: Active Orders 24 hr Category Date Time Status Sling Application STAT Care 08/18/23 20:51 Active HUMERUS Stat Exams 08/18/23 21:13 Taken - Progress Discussed with .: Other (Spoke with Dr. Abreu([id number]) who advised pt to come to the [facility] in the morning for follow up.) Counseled pt/family regarding: need for follow-up, rad results Medical Desision Making - Diagnostic Testing Diagnostic test were ordered, analyzed, and reviewed by me: Yes Radiological Interpretation: Discussed w/ radiologist - Departure Departure Disposition: Home Clinical Impression: Rupture of right biceps tendon Condition: Stable Critical Care Time: No Referrals: SAUNDRA SOTO MD [Primary Care Provider] - Follow up/PCP as directed Instructions: Biceps Tendon Rupture (DC) Additional Instructions: Wear right arm sling for comfort. Go to the [facility] in the morning for follow up .
[2023-08-18 22:55] VITALS: BP 110/73; PULSE 60; O2SAT 95
--- NOTE | 2023-08-19 08:41 | XRAY ---
Indication: Pain and bruising. No known injury. Comparison: None 2 portable views right shoulder demonstrates osteopenia, advanced glenohumeral degenerative changes with tiny heterotopic ossifications, and moderate acromioclavicular degenerative changes. No other bony, articular, or soft tissue abnormalities.
== END 2023-08-18 22:55 | disposition home or self-care (01) ==
LOC: ED 20:35
DX: S46.211A Strain of muscle, fascia and tendon of other parts of biceps, right arm, initial encounter (principal); X50.0XXA Overexertion from strenuous movement or load, initial encounter; X50.3XXA Overexertion from repetitive movements, initial encounter; Y93.54 Activity, bowling; E78.5 Hyperlipidemia, unspecified; I10 Essential (primary) hypertension; Z79.899 Other long term (current) drug therapy
CPT/HCPCS: 73060; 99283

== ENCOUNTER 2024-12-27 08:37 | Day surgery (SDC) | payer MEDICARE, OTHER ==
--- NOTE | 2024-12-25 14:04 | HP ---
HISTORY OF PRESENT ILLNESS: Patient is a 64-year-old male who presents with a history of some colorectal cancer. He has only been on chemo and radiation. He has not had any surgery. It looks like he had a scope in 2022 that was fine. He reports that he sees Dr. Gomez, and he has had serial CAT scans that have been fine. PAST MEDICAL HISTORY: Hypertension, hyperlipidemia, BPH, colon cancer. HOME MEDICATIONS: Meloxicam, hydrochlorothiazide, Zetia, tamsulosin, aspirin, multivitamin, atorvastatin, lisinopril. ALLERGIES: Penicillin, leucovorin. PAST SURGICAL HISTORY: Pacemaker, defibrillator, cataract. SOCIAL HISTORY: Negative. FAMILY HISTORY: Colon cancer, diabetes, hypertension. REVIEW OF SYSTEMS: CONSTITUTIONAL: Denies fever or chills. CHEST: Denies shortness of breath. CARDIOVASCULAR: Denies chest pain. ABDOMEN: Denies abdominal pain. PHYSICAL EXAMINATION: GENERAL: No acute distress. CARDIOVASCULAR: Regular rate and rhythm. RESPIRATORY: Nonlabored. No shortness of breath. ABDOMEN: Soft. ASSESSMENT: History of colon cancer. PLAN: Colonoscopy with Dr. Miguel Del Castillo. This report was dictated for Dr. Del Castillo by Ariella Meraz NP.
[2024-12-27] MEDS: Lactated Ringers 1,000 ML IV SCH (09:15)
[2024-12-27] MEDS ORDERED: propofoL IV ONE ×2 (10:23→10:30)
[2024-12-27 11:11] VITALS: BP 143/86; PULSE 59; RESP 18; TEMP 97.8; O2SAT 94
--- NOTE | 2024-12-28 10:05 | OP ---
SURGERY DATE/TIME: 12/27/2024 [id number] PREOPERATIVE DIAGNOSIS: Followup colon cancer. POSTOPERATIVE DIAGNOSIS: Patient has a mild radiation proctitis with very slight fissuring at 6 o'clock. Otherwise normal. PROCEDURE: Colonoscopy to cecum. SURGEON: Miguel Del Castillo MD. ANESTHESIA: General. COMPLICATIONS: None. PATIENT CONDITION: Stable. DESCRIPTION OF PROCEDURE: Patient taken to endoscopy. Finger introduced. There was slight snugness. Scope was introduced. Scope was advanced to the cecum. Base of cecum, ileocecal valve, appendiceal orifice was photographed and was normal. Ascending, hepatic, transverse, splenic, descending, sigmoid, rectum, anus, no findings was noted. He had a mild radiation proctitis. Nothing was prescribed today. Findings were discussed with his . RECOMMENDATIONS: Follow up in 2 years.
== END 2024-12-27 11:29 | disposition home or self-care (01) ==
LOC: SDC 08:37
PROVIDERS: ATTEND Surgery
DX: Z08 Encounter for follow-up examination after completed treatment for malignant neoplasm (principal); Z85.038 Personal history of other malignant neoplasm of large intestine; I10 Essential (primary) hypertension; Z80.0 Family history of malignant neoplasm of digestive organs; K62.89 Other specified diseases of anus and rectum
CPT/HCPCS: 93005; J2704